=== PATIENT | female | born 1960 | race Caucasian/White ===

== ENCOUNTER 2016-10-25 15:44 | Emergency (ER) | payer OTHER ==
[~2016-10-25] VITALS: Ht 167.6 cm; Wt 77.1 kg
[~2016-10-25 15:44] MED LIST: AMIT50TA PO; DILT360C PO; MELA3TAB PO; ROPI1TAB PO; SERT100T PO
[2016-10-25] MEDS ORDERED: PROMETHAZINE 12.5 MG in IV NORMAL SALINE 50ML 50 ML IV ONE (16:15)
[2016-10-25] MEDS ORDERED: HYDROMORPHONE 2 MG/ML VIAL. IV ONE ×2 (16:15→16:30)
[2016-10-25] MEDS ORDERED: IV NORMAL SALINE 1000ML BAG 1,000 ML IV ONE (16:15)
[2016-10-25 16:20] LABS: BILIRUBIN,URINE NEGATIVE (NEG); GLUCOSE,URINE NEGATIVE (NEG); NITRITE,URINE NEGATIVE (NEG); PH,URINE 5.5; PROTEIN,URINE NEGATIVE (NEG-TRACE); UROBILINOGEN,URINE 0.2 mg/dL (0.2 mg/dL)
[2016-10-25 16:25] LABS: BACTERIA,URINE FEW /HPF (0-FEW); RBC,URINE 0 /HPF (0-2); SQUAMOUS EPITHELIAL CELL,UR FEW /LPF
[2016-10-25] MEDS ORDERED: DIPHENHYDRAMINE 50 MG/ML VIAL IVP ONE (16:45)
[2016-10-25] MEDS ORDERED: DIPHENHYDRAMINE 50 MG/ML VIAL. ONE (16:45)
[2016-10-25] MEDS ORDERED: DIPHENHYDRAMINE 50 MG/ML VIAL. IV ONE (16:47)
[2016-10-25 16:53] LABS: BASO # 0.1 x10^3/uL (0.0-0.2); BASO % 1 % (0-3); EOS % 2 % (0-3); HEMATOCRIT 37.4 % (36.0-47.0); HEMOGLOBIN 12.6 g/dL (12.0-15.5); LYMPH # 2.3 x10^3/uL (1.0-4.8); LYMPH % 25 % (24-48); MEAN CORPUSCULAR HEMOGLOBIN 31 pg (25-35); MEAN CORPUSCULAR HGB CONC 34 g/dL (31-37); MEAN CORPUSCULAR VOLUME 92 fL (79-100); MONO % 7 % (0-9); NEUT % 66 % (31-73); PLATELET COUNT 70 x10^3/uL (140-400); RED BLOOD COUNT 4.06 x10^6/uL (3.50-5.40); RED CELL DISTRIBUTION WIDTH 12.8 % (11.5-14.5); WHITE BLOOD COUNT 9.4 x10^3/uL (4.0-11.0)
[2016-10-25 17:14] LABS: ALBUMIN 4.1 g/dL (3.4-5.0); ALBUMIN/GLOBULIN RATIO 1.4 (1.0-1.7); CALCIUM 10.1 mg/dL (8.5-10.1); CREATININE 0.9 mg/dL (0.6-1.0); GFR 64.5; POTASSIUM 3.9 mmol/L (3.5-5.1); TOTAL BILIRUBIN 0.3 mg/dL (0.2-1.0)
--- NOTE | 2016-10-25 17:35 | RAD ---
PROCEDURE CT abdomen and pelvis without contrast 10/25/2016. HISTORY Abdominal pain. TECHNIQUE Noncontrast images were performed. Exposure: One or more of the following individualized dose reduction techniques were utilized for this exam: 1. Automated exposure control. 2. Adjustment of the mA and/or kV according to patient size. 3. Use of iterative reconstruction technique. COMPARISON 11/11/2014. FINDINGS The lung bases are clear. A hiatal hernia is again seen. No new liver parenchymal abnormality is evident. There is still some air in the biliary tree. Evaluation of the solid organs is somewhat limited by lack of IV contrast. The spleen appears normal. The kidneys show no apparent mass or obstruction. The adrenal glands and pancreas appear normal. No retroperitoneal or mesenteric adenopathy is seen. There is no apparent abdominal soft tissue mass or inflammatory process. A normal appendix is shown arising from the cecum. Images through the pelvis show no abnormality of the distal ureters or bladder. No pelvic or inguinal adenopathy is seen. There is no apparent pelvic mass or inflammatory process. IMPRESSION No apparent acute abnormality. Electronically signed by: Donald Cosme (Oct 25, 2016 17:34:15)
[2016-10-25] MEDS ORDERED: PANT40TA3 PO (17:48)
--- NOTE | 2016-10-25 17:48 | PHYS DOC ---
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 She denies any hematemesis. She denies any melena. She states the pain is 10 out of 10 at this time. Medicines that she have at home have not been working. She states this feels like the pain that she had with previous bouts of pancreatitis. [] Review of Systems Review of Systems Constitutional: Denies fever or chills [] Eyes: Denies change in visual acuity, redness, or eye pain [] HENT: Denies nasal congestion or sore throat [] Respiratory: Denies cough or shortness of breath [] Cardiovascular: No additional information not addressed in HPI [] GI: Per history of present illness [] : Denies dysuria or hematuria [] Musculoskeletal: Denies back pain or joint pain [] Integument: Denies rash or skin lesions [] Neurologic: Denies headache, focal weakness or sensory changes [] Endocrine: Denies polyuria or polydipsia [] Current Medications Current Medications Current Medications Medications (Trade) Dose Ordered Sig/Melody Start Time Stop Time Status Last Admin Dose Admin Diphenhydramine HCl (Benadryl) 25 mg 1X ONCE 10/25/16 16:47 10/25/16 16:48 DC 10/25/16 16:49 25 MG Hydromorphone HCl (Dilaudid) 2 mg 1X ONCE 10/25/16 16:30 10/25/16 16:31 DC 10/25/16 16:44 2 MG Hydromorphone HCl 1 mg 1 mg 1X ONCE 10/25/16 16:15 10/25/16 16:16 Cancel Promethazine HCl/ Sodium Chloride (Phenergan/Iv Sodium Chloride 0.9% 50ml) 50.5 ml @ 101 mls/hr 1X ONCE 10/25/16 16:15 10/25/16 16:44 DC 10/25/16 16:48 101 MLS/HR Sodium Chloride (Iv Sodium Chloride 0.9% 1000ml Bag) 1,000 ml @ 1,000 mls/hr 1X ONCE 10/25/16 16:15 10/25/16 17:14 DC 10/25/16 16:43 1,000 MLS/HR Allergies Allergies Allergies Coded Allergies Type Severity Reaction Last Updated Verified codeine Allergy Intermediate HIVES 05/04/14 Yes famotidine Allergy Intermediate HIVES 05/04/14 Yes ketorolac Allergy Intermediate HIVES 05/04/14 Yes meperidine Allergy Intermediate HIVES 05/04/14 Yes morphine Allergy Intermediate HIVES 05/04/14 Yes omeprazole Allergy Intermediate ARMS SWELL 05/04/14 Yes ondansetron Allergy Intermediate HIVES 05/04/14 Yes ranitidine Allergy Intermediate HIVES 05/04/14 Yes tramadol Allergy Intermediate HIVES 05/04/14 Yes esomeprazole Adverse Reaction Intermediate DIARRHEA, CRAMPING 05/04/14 Yes fentanyl Adverse Reaction Intermediate MIGRAINE 05/04/14 Yes Physical Exam Physical Exam Constitutional: Well developed, well nourished, moderate distress, non-toxic appearance. [] HENT: Normocephalic, atraumatic, bilateral external ears normal, oropharynx moist, no oral exudates, nose normal. [] Eyes: PERRLA, EOMI, conjunctiva normal, no discharge. [] Neck: Normal range of motion, no tenderness, supple, no stridor. [] Cardiovascular:Heart rate regular rhythm, no murmur [] Lungs & Thorax: Bilateral breath sounds clear to auscultation [] Abdomen: Right upper quadrant/epigastric area tender to palp negative Whiteside's. [] Skin: Warm, dry, no erythema, no rash. [] Back: No tenderness, no CVA tenderness. [] Extremities: No tenderness, no cyanosis, no clubbing, ROM intact, no edema. [] Neurologic: Alert and oriented X 3, normal motor function, normal sensory function, no focal deficits noted. [] Psychologic: Anxious. [] Current Patient Data Vital Signs Vital Signs Date Time Temp Pulse Resp B/P Pulse Ox O2 Delivery O2 Flow Rate FiO2 10/25/16 16:44 Room Air 10/25/16 16:01 107 18 143/93 98 10/25/16 15:47 98.6 98.6 Lab Values Laboratory Tests Test 10/25/16 15:55 10/25/16 16:40 Urine Collection Type Unknown Urine Color Yellow Urine Clarity Clear Urine pH 5.5 Urine Specific Gary >=1.030 Urine Protein Negativemg/dL (NEG-TRACE) Urine Glucose (UA) Negativemg/dL (NEG) Urine Ketones (Stick) Negativemg/dL (NEG) Urine Blood Negative (NEG) Urine Nitrite Negative (NEG) Urine Bilirubin Negative (NEG) Urine Urobilinogen Dipstick 0.2mg/dL (0.2 mg/dL) Urine Leukocyte Esterase Small (NEG) Urine RBC 0/HPF (0-2) Urine WBC 1-4/HPF (0-4) Urine Squamous Epithelial Cells Few/LPF Urine Bacteria Few/HPF (0-FEW) Urine Mucus Mod/LPF White Blood Count 9.4x10^3/uL (4.0-11.0) Red Blood Count 4.06x10^6/uL (3.50-5.40) Hemoglobin 12.6g/dL (12.0-15.5) Hematocrit 37.4% (36.0-47.0) Mean Corpuscular Volume 92fL (79-100) Mean Corpuscular Hemoglobin 31pg (25-35) Mean Corpuscular Hemoglobin Concent 34g/dL (31-37) Red Cell Distribution Width 12.8% (11.5-14.5) Platelet Count 70x10^3/uL (140-400) L Neutrophils (%) (Auto) 66% (31-73) Lymphocytes (%) (Auto) 25% (24-48) Monocytes (%) (Auto) 7% (0-9) Eosinophils (%) (Auto) 2% (0-3) Basophils (%) (Auto) 1% (0-3) Neutrophils # (Auto) 6.2x10^3uL (1.8-7.7) Lymphocytes # (Auto) 2.3x10^3/uL (1.0-4.8) Monocytes # (Auto) 0.6x10^3/uL (0.0-1.1) Eosinophils # (Auto) 0.2x10^3/uL (0.0-0.7) Basophils # (Auto) 0.1x10^3/uL (0.0-0.2) Sodium Level 140mmol/L (136-145) Potassium Level 3.9mmol/L (3.5-5.1) Chloride Level 103mmol/L (98-107) Carbon Dioxide Level 26mmol/L (21-32) Anion Gap 11 (6-14) Blood Urea Nitrogen 27mg/dL (7-20) H Creatinine 0.9mg/dL (0.6-1.0) Estimated GFR (Cockcroft-Gault) 64.5 BUN/Creatinine Ratio 30 (6-20) H Glucose Level 109mg/dL (70-99) H Calcium Level 10.1mg/dL (8.5-10.1) Total Bilirubin 0.3mg/dL (0.2-1.0) Aspartate Amino Transferase (AST) 10U/L (15-37) L Alanine Aminotransferase (ALT) 29U/L (14-59) Alkaline Phosphatase 87U/L (46-116) Troponin I Quantitative < 0.017ng/mL (0.000-0.055) Total Protein 7.0g/dL (6.4-8.2) Albumin 4.1g/dL (3.4-5.0) Albumin/Globulin Ratio 1.4 (1.0-1.7) Lipase 142U/L (73-393) Laboratory Tests 10/25/16 16:40 Laboratory Tests 10/25/16 16:40 EKG EKG [] Radiology/Procedures Radiology/Procedures [] Impressions: PROCEDURE: CT ABDOMEN PELVIS WO CONTRAST PROCEDURE CT abdomen and pelvis without contrast 10/25/2016. HISTORY Abdominal pain. TECHNIQUE Noncontrast images were performed. Exposure: One or more of the following individualized dose reduction techniques were utilized for this exam: 1. Automated exposure control. 2. Adjustment of the mA and/or kV according to patient size. 3. Use of iterative reconstruction technique. COMPARISON 11/11/2014. FINDINGS The lung bases are clear. A hiatal hernia is again seen. No new liver parenchymal abnormality is evident. There is still some air in the biliary tree. Evaluation of the solid organs is somewhat limited by lack of IV contrast. The spleen appears normal. The kidneys show no apparent mass or obstruction. The adrenal glands and pancreas appear normal. No retroperitoneal or mesenteric adenopathy is seen. There is no apparent abdominal soft tissue mass or inflammatory process. A normal appendix is shown arising from the cecum. Images through the pelvis show no abnormality of the distal ureters or bladder. No pelvic or inguinal adenopathy is seen. There is no apparent pelvic mass or inflammatory process. IMPRESSION No apparent acute abnormality. Course & Med Decision Making Course & Med Decision Making Pertinent Labs and Imaging studies reviewed. (See chart for details) [ED course: Evaluation reveals 56-year-old female with moderate to severe pain secondary to abdominal pain. She was given IV fluids Dilaudid and Phenergan and Benadryl with near complete resolution of her symptoms. CT scan was unrevealing. Her lipase was normal. She did have a slightly elevated BUN/ creatinine at 2017 creatinine 0.9 ratio but this was likely corrected with fluids. Patient states she feels much better and wants to go home] Dragon Disclaimer Dragon Disclaimer This electronic medical record was generated, in whole or in part, using a voice recognition dictation system. Departure Departure Impression: Primary Impression: Abdominal pain Referrals: UNKNOWN PCP NAME (PCP) Patient Instructions: Abdominal Pain (Nonspecific) Additional Instructions: Thank you for allowing us to participate in your care today. Followup with your primary care physician in 3 days if your symptoms do not improve. Return to the emergency department you have any new or concerning findings. This should be evaluated by the primary care physician and any necessary consulting services for continued management within a few days after discharge. Return to emergency room if you have any new or concerning symptoms including but not limited to fever, chills, nausea, vomiting, intractable pain, any new rashes, chest pain, shortness of air, uncontrolled bleeding, difficulty breathing, and/or vision loss. You may have been prescribed medication that can change in your level of thinking and ability to operate machinery. These medications include hydrocodone and Ativan. Also, Benadryl has been known to do this as well. Be sure to check with your pharmacist and ask if the medications you've prescribed can affect your level of consciousness. I recommend not operating heavy machinery or driving while on medication such as these. Scripts Pantoprazole Sodium (Protonix)40 Mg Tablet.dr1 Tab PO DAILY abd pain #30 TAB Ref 5 Prov:ROCHELLE FUNES DO 10/25/16 Problem Qualifiers Primary Impression: Abdominal pain Abdominal location: epigastric Qualified Code: R10.13 - Epigastric pain ROCHELLE FUNES DO Oct 25, 2016 17:48
[2016-10-25 18:02] VITALS: BP 123/71
--- NOTE | 2016-10-26 06:11 | EKG ---
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
== END 2016-10-25 18:07 | disposition home or self-care (01) ==
LOC: ER 15:44
DX: R10.13 Epigastric pain (principal); I10 Essential (primary) hypertension; F41.9 Anxiety disorder, unspecified; Z90.49 Acquired absence of other specified parts of digestive tract; Z87.19 Personal history of other diseases of the digestive system; G25.81 Restless legs syndrome; Z88.5 Allergy status to narcotic agent; Z88.6 Allergy status to analgesic agent; Z88.8 Allergy status to other drugs, medicaments and biological substances
CPT/HCPCS: 36415; 74176; 80053; 81001; 83690; 84484; 85027; 87086; 93005; 96365; 96375; 99285; J1170; J1200; J2550; J7030

== ENCOUNTER 2016-11-16 06:52 | Emergency (ER) | payer OTHER ==
[~2016-11-16] VITALS: Ht 167.6 cm; Wt 77.1 kg
[~2016-11-16 06:52] MED LIST changes: +PANT40TA3 PO
[2016-11-16] MEDS ORDERED: fentaNYL PF VIAL 100 MCG/2 ML VIAL IV ONE (07:15)
[2016-11-16] MEDS ORDERED: PROCHLORPERAZINE 10 MG/2 ML VIAL. IV ONE (07:15)
[2016-11-16] MEDS ORDERED: IV NORMAL SALINE 1000ML BAG 1,000 ML IV ONE (07:15)
[2016-11-16 07:36] LABS: BILIRUBIN,URINE NEGATIVE (NEG); GLUCOSE,URINE NEGATIVE (NEG); NITRITE,URINE NEGATIVE (NEG); PH,URINE 5.5; PROTEIN,URINE NEGATIVE (NEG-TRACE); UROBILINOGEN,URINE 0.2 mg/dL (0.2 mg/dL)
[2016-11-16 07:44] LABS: RBC,URINE 0 /HPF (0-2); WBC,URINE OCC /HPF (0-4)
[2016-11-16 07:45] LABS: BACTERIA,URINE 0 /HPF (0-FEW); SQUAMOUS EPITHELIAL CELL,UR FEW /LPF
[2016-11-16 08:18] LABS: BASO # 0.1 x10^3/uL (0.0-0.2); BASO % 1 % (0-3); EOS % 2 % (0-3); HEMOGLOBIN 13.1 g/dL (12.0-15.5); LYMPH # 1.1 x10^3/uL (1.0-4.8); LYMPH % 19 % (24-48); MEAN CORPUSCULAR HEMOGLOBIN 31 pg (25-35); MEAN CORPUSCULAR HGB CONC 34 g/dL (31-37); MEAN CORPUSCULAR VOLUME 93 fL (79-100); MONO % 8 % (0-9); NEUT % 70 % (31-73); PLATELET COUNT 145 x10^3/uL (140-400); RED BLOOD COUNT 4.21 x10^6/uL (3.50-5.40); RED CELL DISTRIBUTION WIDTH 13.1 % (11.5-14.5); WHITE BLOOD COUNT 5.8 x10^3/uL (4.0-11.0)
[2016-11-16 08:32] LABS: CALCIUM 9.6 mg/dL (8.5-10.1); CREATININE 0.8 mg/dL (0.6-1.0); GFR 73.9; POTASSIUM 3.9 mmol/L (3.5-5.1)
[2016-11-16 08:38] LABS: ALBUMIN 3.9 g/dL (3.4-5.0); ALBUMIN/GLOBULIN RATIO 1.1 (1.0-1.7); C-REACTIVE PROTEIN 0.9 mg/L (0-3.3); TOTAL BILIRUBIN 0.2 mg/dL (0.2-1.0); TOTAL PROTEIN 7.4 g/dL (6.4-8.2)
[2016-11-16 09:00] VITALS: BP 138/65
[2016-11-16] MEDS ORDERED: CONTRAST GIVEN MC PRN (09:00)
[2016-11-16] MEDS ORDERED: IOHEXOL 300 MG/ML 75 ML VIAL IV ONE (09:00)
--- NOTE | 2016-11-16 09:07 | ED.ADGEN ---
Past Medical History Past Medical History: Anxiety, Constipation, Depression, Hypertension, Pancreatitis Additional Past Medical Histor: disfunctional odious sphincter; bowel obstructions; back pain, restless leg Past Surgical History: Cholecystectomy, Other Additional Past Surgical Histo: ERCP x 5, Intestine surgeries; bowel obstruction; left ovary, bunion Alcohol Use: None Drug Use: None Adult General Chief Complaint Chief Complaint: ABDOMINAL PAIN HPI HPI Patient is a 56 year old 49-year-old female with history of prior cholecystectomy, recurrent pancreatitis, peptic ulcer disease who presents with right upper quadrant pain since this morning. Patient also reports chronic back pain. Denies nausea vomiting, fever chills or sweats. Denies flank pain, hematuria, dysuria, urinary frequency urgency history of frequent UTIs or prior kidney stones. No other acute symptoms or complaints. Patient is currently taking Tylenol only for her pain. She is scheduled to for back surgery tomorrow. Review of Systems Review of Systems ROS as epr HPI. Current Medications Current Medications Current Medications Medications (Trade) Dose Ordered Sig/Melody Start Time Stop Time Status Last Admin Dose Admin Fentanyl Citrate (Fentanyl 2ml Vial) 75 mcg 1X ONCE 11/16/16 07:15 11/16/16 07:18 DC 11/16/16 07:41 75 MCG Info (Do NOT chart on this entry -- for MONITORING) 1 each PRN DAILY PRN 11/16/16 09:00 11/18/16 08:59 Iohexol (Omnipaque 300 Mg/ml) 75 ml 1X ONCE 11/16/16 09:00 11/16/16 09:01 DC Prochlorperazine Edisylate 10 mg 10 mg 1X ONCE 11/16/16 07:15 11/16/16 07:17 DC 11/16/16 07:41 10 MG Sodium Chloride (Iv Sodium Chloride 0.9% 1000ml Bag) 1,000 ml @ 1,000 mls/hr 1X ONCE 11/16/16 07:15 11/16/16 08:14 DC 11/16/16 07:40 1,000 MLS/HR Allergies Allergies Allergies Coded Allergies Type Severity Reaction Last Updated Verified codeine Allergy Intermediate HIVES 05/04/14 Yes famotidine Allergy Intermediate HIVES 05/04/14 Yes ketorolac Allergy Intermediate HIVES 05/04/14 Yes meperidine Allergy Intermediate HIVES 05/04/14 Yes morphine Allergy Intermediate HIVES 05/04/14 Yes omeprazole Allergy Intermediate ARMS SWELL 05/04/14 Yes ondansetron Allergy Intermediate HIVES 05/04/14 Yes ranitidine Allergy Intermediate HIVES 05/04/14 Yes tramadol Allergy Intermediate HIVES 05/04/14 Yes esomeprazole Adverse Reaction Intermediate DIARRHEA, CRAMPING 05/04/14 Yes fentanyl Adverse Reaction Intermediate MIGRAINE 05/04/14 Yes Physical Exam Physical Exam Constitutional: Well developed, well nourished, no acute distress, non-toxic appearance. HENT: Normocephalic, atraumatic, bilateral external ears normal, oropharynx moist, no oral exudates, nose normal. Eyes: PERRLA, EOMI, conjunctiva normal. Neck: Normal range of motion. Cardiovascular:Heart rate regular rhythm, no murmur. Lungs & Thorax: Bilateral breath sounds clear to auscultation. Abdomen: Bowel sounds normal, soft, no tenderness. Skin: Warm, dry. Back: No tenderness. Extremities: No tenderness. Neurologic: Alert and oriented X 3, normal motor function, normal sensory function, no focal deficits noted. [] Psychologic: Affect normal, judgement normal, mood normal. [] Current Patient Data Vital Signs Vital Signs Date Time Temp Pulse Resp B/P Pulse Ox O2 Delivery O2 Flow Rate FiO2 11/16/16 07:48 97 18 151/80 98 11/16/16 07:16 98.2 Room Air 98.2 Lab Values Laboratory Tests Test 11/16/16 07:05 11/16/16 08:05 Urine Collection Type Unknown Urine Color Yellow Urine Clarity Clear Urine pH 5.5 Urine Specific Dana 1.025 Urine Protein Negativemg/dL (NEG-TRACE) Urine Glucose (UA) Negativemg/dL (NEG) Urine Ketones (Stick) Negativemg/dL (NEG) Urine Blood Negative (NEG) Urine Nitrite Negative (NEG) Urine Bilirubin Negative (NEG) Urine Urobilinogen Dipstick 0.2mg/dL (0.2 mg/dL) Urine Leukocyte Esterase Negative (NEG) Urine RBC 0/HPF (0-2) Urine WBC Occ/HPF (0-4) Urine Squamous Epithelial Cells Few/LPF Urine Bacteria 0/HPF (0-FEW) Urine Mucus Mod/LPF White Blood Count 5.8x10^3/uL (4.0-11.0) Red Blood Count 4.21x10^6/uL (3.50-5.40) Hemoglobin 13.1g/dL (12.0-15.5) Hematocrit 39.0% (36.0-47.0) Mean Corpuscular Volume 93fL (79-100) Mean Corpuscular Hemoglobin 31pg (25-35) Mean Corpuscular Hemoglobin Concent 34g/dL (31-37) Red Cell Distribution Width 13.1% (11.5-14.5) Platelet Count 145x10^3/uL (140-400) # Neutrophils (%) (Auto) 70% (31-73) Lymphocytes (%) (Auto) 19% (24-48) L Monocytes (%) (Auto) 8% (0-9) Eosinophils (%) (Auto) 2% (0-3) Basophils (%) (Auto) 1% (0-3) Neutrophils # (Auto) 4.0x10^3uL (1.8-7.7) Lymphocytes # (Auto) 1.1x10^3/uL (1.0-4.8) Monocytes # (Auto) 0.4x10^3/uL (0.0-1.1) Eosinophils # (Auto) 0.1x10^3/uL (0.0-0.7) Basophils # (Auto) 0.1x10^3/uL (0.0-0.2) Sodium Level 135mmol/L (136-145) L Potassium Level 3.9mmol/L (3.5-5.1) Chloride Level 102mmol/L (98-107) Carbon Dioxide Level 25mmol/L (21-32) Anion Gap 8 (6-14) Blood Urea Nitrogen 17mg/dL (7-20) Creatinine 0.8mg/dL (0.6-1.0) Estimated GFR (Cockcroft-Gault) 73.9 BUN/Creatinine Ratio 21 (6-20) H Glucose Level 122mg/dL (70-99) H Calcium Level 9.6mg/dL (8.5-10.1) Total Bilirubin 0.2mg/dL (0.2-1.0) Aspartate Amino Transferase (AST) 19U/L (15-37) Alanine Aminotransferase (ALT) 41U/L (14-59) Alkaline Phosphatase 89U/L (46-116) C-Reactive Protein, Quantitative 0.9mg/L (0-3.3) Total Protein 7.4g/dL (6.4-8.2) Albumin 3.9g/dL (3.4-5.0) Albumin/Globulin Ratio 1.1 (1.0-1.7) Lipase 157U/L (73-393) Ethyl Alcohol Level < 10mg/dL (0-10) Laboratory Tests 11/16/16 08:05 Laboratory Tests 11/16/16 08:05 EKG EKG [] Radiology/Procedures Radiology/Procedures [] Impressions: Recurrent abdominal pain in setting of chronic back pain with normal labs Course & Med Decision Making Course & Med Decision Making Pertinent Labs and Imaging studies reviewed. (See chart for details) [Since abdominal pain resolved with fentanyl and ED. Abdomen soft, nontender and repeat evaluation. Patient complains of remaining chronic back pain only. Additional workup and testing offered but declined by patient. She states she feels much better and is ready to go home. She is instructed to notify her back surgeon regarding her visit to the emergency department today and and any ongoing symptoms. Return precautions reviewed. Dragon Disclaimer Dragon Disclaimer This electronic medical record was generated, in whole or in part, using a voice recognition dictation system. KYARA EVANS DO November 16, 2016 09:07
== END 2016-11-16 09:05 | disposition home or self-care (01) ==
LOC: ER 06:52
DX: R10.11 Right upper quadrant pain (principal); G89.29 Other chronic pain; M54.9 Dorsalgia, unspecified; F41.9 Anxiety disorder, unspecified; F32.9 Major depressive disorder, single episode, unspecified; I10 Essential (primary) hypertension; G25.81 Restless legs syndrome; Z87.11 Personal history of peptic ulcer disease; Z88.6 Allergy status to analgesic agent; Z88.5 Allergy status to narcotic agent; Z88.8 Allergy status to other drugs, medicaments and biological substances; Z88.4 Allergy status to anesthetic agent; Z90.49 Acquired absence of other specified parts of digestive tract
CPT/HCPCS: 36415; 80053; 80320; 81001; 83690; 85027; 86140; 96361; 96374; 96375; 99284; J0780; J3010; J7030; G0480

== ENCOUNTER 2017-02-13 14:21 | Emergency (ER) | payer OTHER ==
[~2017-02-13] VITALS: Ht 170.2 cm; Wt 77.1 kg
[~2017-02-13 14:21] MED LIST changes: -MELA3TAB PO; +MELA3TAB2 PO
[2017-02-13 15:19] VITALS: BP 153/80
[2017-02-13] MEDS ORDERED: IV NORMAL SALINE 500ML BAG 500 ML IV ONE (15:30)
[2017-02-13 15:34] LABS: BILIRUBIN,URINE NEGATIVE (NEG); GLUCOSE,URINE NEGATIVE (NEG); NITRITE,URINE NEGATIVE (NEG); PROTEIN,URINE NEGATIVE (NEG-TRACE); UROBILINOGEN,URINE 0.2 mg/dL (0.2 mg/dL)
--- NOTE | 2017-02-13 15:41 | PHYS DOC ---
Past Medical History Past Medical History: Anxiety, Constipation, Depression, Hypertension, Pancreatitis, Other Additional Past Medical Histor: disfunctional odious sphincter; bowel obstructions; back pain, restless leg Past Surgical History: Cholecystectomy, Other Additional Past Surgical Histo: ERCP x 5, Intestine surgeries; bowel obstruction; left ovary, bunion Alcohol Use: None Drug Use: None Adult General Chief Complaint Chief Complaint: ABDOMINAL PAIN HPI HPI 56-year-old female presenting to the emergency Department with chronic epigastric abdominal pain. She reports a history of pancreatitis. The pain is moderate, intermittent, associated with eating, radiates to the back is sharp nonradiating without alleviating factors. She has mild nausea. She denies hematochezia or melena or hemoptysis. Review of systems is negative for fevers chills chest pain shortness of breath. All other review of systems is negative unless otherwise noted in history of present illness. ED course: 56-year-old female with a history of chronic abdominal pain, sphincter motor dysfunction, chronic recurrent pancreatitis with multiple abdominal surgeries and extremely suspicious allergy list for opioid abuse syndrome presenting to the emergency department today with epigastric abdominal pain. Triage vital signs show the patient to be afebrile with mild hypertension and is chronic. Pertinent physical examination findings showed the abdomen be soft and nontender to palpation. The patient last received acetaminophen at 8: 00 this morning. I offered the patient acetaminophen for her pain and CT of the abdomen along with blood tests to evaluate her abdominal pain further before initiating IV opioid therapy. Unfortunately my options are extremely limited based on the patient's significant allergy list. I reviewed the patient's pharmacy records of the [facility] which also suspicious for opioid abuse syndrome given the patient receives multiple strong opioid medications from different providers from different hospitals. The patient then left AGAINST MEDICAL ADVICE. AMA I informed the patient of their right to a medical screening exam and any treatment and/or stabilization that may be necessary regardless of their ability to pay. The patient appears to have intact insight, judgment, and reason. In my opinion, this patient has the capacity to make decisions. The patient presented with abd pain and I would like to evaluate the patient for pancreatitis ACS, abdominal aortic catastrophes, nephrolithiasis, small bowel obstruction, atypical appendicitis. My initial plan prior to the pt expressing the desire to leave was [blood work, CT of the abdomen along with EKG and troponin. I explained the risk of and disability to the patient in plain language which they were able to demonstrate in their own words verbal understanding. I discussed the limitations of the workup thus far included but were not limited to the evaluation of blood work and CT of the abdomen pelvis. The pt has verbalized understanding of my concerns. I offered alternatives to the therapy including follow-up with her primary care physician today or tomorrow. I explained that at any time if the patient changed their mind, we are always open and would be happy to have them back. The patient refused further care and then left against medical advice. Review of Systems Review of Systems SEE ABOVE. Current Medications Current Medications Current Medications Medications (Trade) Dose Ordered Sig/Melody Start Time Stop Time Status Last Admin Dose Admin Sodium Chloride 500 ml @ 500 mls/hr 1X ONCE 02/13/17 15:30 02/13/17 16:29 Allergies Allergies Allergies Coded Allergies Type Severity Reaction Last Updated Verified codeine Allergy Intermediate HIVES 05/04/14 Yes famotidine Allergy Intermediate HIVES 05/04/14 Yes ketorolac Allergy Intermediate HIVES 05/04/14 Yes meperidine Allergy Intermediate HIVES 05/04/14 Yes morphine Allergy Intermediate HIVES 05/04/14 Yes omeprazole Allergy Intermediate ARMS SWELL 05/04/14 Yes ondansetron Allergy Intermediate HIVES 05/04/14 Yes ranitidine Allergy Intermediate HIVES 05/04/14 Yes tramadol Allergy Intermediate HIVES 05/04/14 Yes esomeprazole Adverse Reaction Intermediate DIARRHEA, CRAMPING 05/04/14 Yes fentanyl Adverse Reaction Intermediate MIGRAINE 05/04/14 Yes Physical Exam Physical Exam SEE ABOVE Constitutional: Well developed, well nourished, no acute distress, non-toxic appearance. [] HENT: Normocephalic, atraumatic, bilateral external ears normal, oropharynx moist, no oral exudates, nose normal. [] Eyes: PERRLA, EOMI, conjunctiva normal, no discharge. [] Neck: Normal range of motion, no tenderness, supple, no stridor. [] Cardiovascular:Heart rate regular rhythm, no murmur [] Lungs & Thorax: Bilateral breath sounds clear to auscultation [] Abdomen: Bowel sounds normal, soft, no tenderness, no masses, no pulsatile masses. [] Skin: Warm, dry, no erythema, no rash. [] Back: No tenderness, no CVA tenderness. [] Extremities: No tenderness, no cyanosis, no clubbing, ROM intact, no edema. [] Neurologic: Alert and oriented X 3, normal motor function, normal sensory function, no focal deficits noted. [] Psychologic: Affect normal, judgement normal, mood normal. [] Current Patient Data Vital Signs Vital Signs Date Time Temp Pulse Resp B/P (MAP) Pulse Ox O2 Delivery O2 Flow Rate FiO2 02/13/17 15:19 99.0 99 20 153/80 (104) 99 Room Air 99.0 EKG EKG [] Radiology/Procedures Radiology/Procedures [] Course & Med Decision Making Course & Med Decision Making Pertinent Labs and Imaging studies reviewed. (See chart for details) [] Dragon Disclaimer Dragon Disclaimer This electronic medical record was generated, in whole or in part, using a voice recognition dictation system. Departure Departure Impression: Primary Impression: Abdominal pain Additional Impressions: Drug-seeking behavior Opioid abuse Disposition: AGAINST MEDICAL ADVICE Condition: GUARDED Referrals: UNKNOWN PCP NAME (PCP) MARCIO GRIDER MD Patient Instructions: Abdominal Pain Additional Instructions: Thank you for allowing us to participate in your care today. Followup with your primary care physician today. Call your Primary Doctor tomorrow and inform them of your visit today. If you do not have a primary care provider you can ask for a list of our primary care providers. Return to the emergency department you have any new or concerning findings. This should be evaluated by the primary care physician and any necessary consulting services for continued management within a few days after discharge. Return to emergency room if you have any new or concerning symptoms including but not limited to fever, chills, nausea, vomiting, intractable pain, any new rashes, chest pain, shortness of air, uncontrolled bleeding, difficulty breathing, and/or vision loss. You are always welcome back to continue care and evaluation. Problem Qualifiers KELSEA PAGAN MD Feb 13, 2017 15:41
[2017-02-13 15:43] LABS: RBC,URINE 0 /HPF (0-2)
[2017-02-13 15:44] LABS: BACTERIA,URINE 0 /HPF (0-FEW); SQUAMOUS EPITHELIAL CELL,UR FEW /LPF
== END 2017-02-13 15:54 | disposition left against medical advice (07) ==
LOC: ER 14:21
DX: R10.13 Epigastric pain (principal); F11.10 Opioid abuse, uncomplicated; I10 Essential (primary) hypertension; Z90.49 Acquired absence of other specified parts of digestive tract
CPT/HCPCS: 81001; 87086; 99284